=== PATIENT | male | born 1965 | race African-American/Black ===

== ENCOUNTER 2023-06-03 14:41 | Inpatient (IN) | payer OTHER ==
[2023-06-03 16:59] VITALS: BMI 21.8
[2023-06-03] MEDS ORDERED: DICYCLOMINE HCL 10 MG CAPSULE PO PRN (19:33)
[2023-06-03] MEDS ORDERED: NALOXONE HCL (KLOXXADO) 8 MG SPRAY NS PRN (19:33)
[2023-06-03] MEDS ORDERED: BENZOCAINE/MENTHOL (CHLORASEPTIC ) LOZENGE MM PRN (19:33)
[2023-06-03] MEDS ORDERED: POLYETHYLENE GLYCOL (HEALTHYLAX) 3350 17 GM PACKET PO PRN (19:33)
[2023-06-03] MEDS ORDERED: MAG HYDROX/AL HYDROX/SIMETH 30 ML UNIT-DOSE CUP PO PRN (19:33)
[2023-06-03] MEDS ORDERED: BENZONATATE 200 MG CAPSULE PO PRN (19:33)
[2023-06-03] MEDS ORDERED: LOPERAMIDE HCL 2 MG CAPSULE PO PRN (19:33)
[2023-06-03] MEDS ORDERED: IBUPROFEN 400 MG TABLET (FP) PO PRN (19:33)
[2023-06-03] MEDS ORDERED: guaiFENesin 600 MG TABLET.ER (FP) PO PRN (19:33)
[2023-06-03] MEDS ORDERED: NALOXONE HCL 0.4 MG/ML VIAL IM PRN (19:33)
[2023-06-03] MEDS ORDERED: ACETAMINOPHEN 325 MG TABLET (FP) PO PRN (19:33)
[2023-06-03] MEDS ORDERED: IBUPROFEN 600 MG TABLET (FP) PO PRN (19:33)
[2023-06-03] MEDS ORDERED: BISMUTH SUBSALICYLATE 524 MG/30 ML PO PRN (19:33)
[2023-06-03] MEDS ORDERED: MAGNESIUM HYDROX 2400MG/30ML ORAL SUSPENSION 30 ML CUP PO PRN (19:33)
[2023-06-03] MEDS ORDERED: ONDANSETRON *ODT* 4 MG TABLET SL PRN (19:33)
[2023-06-03] MEDS: GABAPENTIN 300 MG CAPSULE PO SCH (22:34)
[2023-06-03] MEDS: THIAMINE HCL 100 MG TABLET (FP) PO SCH (22:34)
[2023-06-03] MEDS: MELATONIN 5 MG TABLETS PO SCH (22:34)
[2023-06-04] MEDS: PRENATAL VITAMINS W/ FOLIC ACID TABLET (FP) PO SCH (10:50)
[2023-06-04 14:57] LABS: CHLORIDE 106 mmol/L (98-107); POTASSIUM 4.7 mmol/L (3.5-5.1); SODIUM 138 mmol/L (136-145)
[2023-06-04 14:59] LABS: CALCIUM 9.3 mg/dL (8.5-10.1)
[2023-06-04 15:00] LABS: ALBUMIN 3.7 g/dl (3.4-5.0); ANION GAP 1 mmol/L (4-13); BLOOD UREA NITROGEN 11.3 mg/dL (7-18); CO2 31 mmol/L (21-32); GLUCOSE,RANDOM 84 mg/dL (74-106)
[2023-06-04 15:01] LABS: HEMATOCRIT 41.4 % (35.4-49); HEMOGLOBIN 12.5 GM/dL (11.7-16.9); MCH 22.8 pg (25.7-33.7); MCHC 30.3 g/dl (32.0-35.9); MEAN CELL VOLUME 75.2 fl (80-96); MEAN PLT VOLUME 8.6 fl (7.5-11.1); PLATELET COUNT 358 10^3/uL (134-434); RDW 17.9 % (11.9-15.9); WHITE BLOOD COUNT 6.8 K/mm3 (4.0-10.0)
[2023-06-04 15:03] LABS: SGOT/AST 16 U/L (15-37); SGPT/ALT 26 U/L (13-61)
[2023-06-04 15:05] LABS: BILIRUBIN,TOTAL 0.3 mg/dL (0.2-1)
[2023-06-04 15:06] LABS: ALK PHOS 68 U/L (45-117)
[2023-06-04] MEDS: METHOCARBAMOL 500 MG TABLET PO PRN (22:46)
[2023-06-04] MEDS: hydrOXYzine PAMOATE 25 MG CAPSULE (FP) PO PRN (22:46)
[2023-06-05 06:36] VITALS: RESP 16
[2023-06-05 09:50] VITALS: BP 141/71; PULSE 89; TEMP 97.1
== END 2023-06-05 12:03 | disposition home or self-care (01) | DRG 774 ==
LOC: YASAS 14:41 → Y6N 19:21
PROVIDERS: ADMIT Allergy & Immunology; ATTEND Surgery
PROC: HZ2ZZZZ Detoxification Services for Substance Abuse Treatment (ICD-10-PCS; principal; 2023-06-03)
DX: F10.20 Alcohol dependence, uncomplicated (principal); F14.10 Cocaine abuse, uncomplicated; F12.20 Cannabis dependence, uncomplicated; F17.210 Nicotine dependence, cigarettes, uncomplicated; G25.81 Restless legs syndrome; I10 Essential (primary) hypertension; Z86.73 Personal history of transient ischemic attack (TIA), and cerebral infarction without residual deficits; Z89.021 Acquired absence of right finger(s)
CPT/HCPCS: 36415; 80053; 80305; 80307; 82962; 85027; 86780

== ENCOUNTER 2023-08-08 12:15 | Inpatient (IN) | payer OTHER ==
[2023-08-08 13:25] VITALS: BMI 20.9
[2023-08-08] MEDS ORDERED: LOPERAMIDE HCL 2 MG CAPSULE PO PRN (14:12)
[2023-08-08] MEDS ORDERED: MAG HYDROX/AL HYDROX/SIMETH 30 ML UNIT-DOSE CUP PO PRN (14:12)
[2023-08-08] MEDS ORDERED: POLYETHYLENE GLYCOL (HEALTHYLAX) 3350 17 GM PACKET PO PRN (14:12)
[2023-08-08] MEDS ORDERED: NALOXONE HCL (KLOXXADO) 8 MG SPRAY NS PRN (14:12)
[2023-08-08] MEDS ORDERED: guaiFENesin 600 MG TABLET.ER (FP) PO PRN (14:12)
[2023-08-08] MEDS ORDERED: BENZONATATE 200 MG CAPSULE PO PRN (14:12)
[2023-08-08] MEDS ORDERED: BENZOCAINE/MENTHOL (CHLORASEPTIC ) LOZENGE MM PRN (14:12)
[2023-08-08] MEDS ORDERED: MAGNESIUM HYDROX 2400MG/30ML ORAL SUSPENSION 30 ML CUP PO PRN (14:12)
[2023-08-08] MEDS ORDERED: BISMUTH SUBSALICYLATE 262 MG/15 ML BTL PO PRN (14:12)
[2023-08-08] MEDS ORDERED: ACETAMINOPHEN 325 MG TABLET (FP) PO PRN (14:12)
[2023-08-08] MEDS ORDERED: NALOXONE HCL 0.4 MG/ML VIAL IM PRN (14:12)
[2023-08-08] MEDS ORDERED: chlordiazePOXIDE HCL 25 MG CAPSULE PO PRN (14:12)
[2023-08-08] MEDS ORDERED: DICYCLOMINE HCL 10 MG CAPSULE PO PRN (14:12)
[2023-08-08] MEDS ORDERED: ONDANSETRON *ODT* 4 MG TABLET SL PRN (14:12)
[2023-08-08] MEDS: GABAPENTIN 400 MG CAPSULE PO SCH (17:29)
[2023-08-08] MEDS: chlordiazePOXIDE HCL 25 MG CAPSULE PO SCH (17:30)
[2023-08-08] MEDS: THIAMINE 100 MG TABLET PO SCH (22:22)
[2023-08-08] MEDS: MELATONIN 5 MG TABLETS PO SCH (22:27)
[2023-08-09] MEDS: metFORMIN HCL 500 MG TABLET (FP) PO SCH (06:34)
[2023-08-09] MEDS: PRENATAL VITAMINS W/ FOLIC ACID TABLET (FP) PO SCH (10:25)
[2023-08-09 11:52] LABS: CHLORIDE 107 mmol/L (98-107); POTASSIUM 4.4 mmol/L (3.5-5.1); SODIUM 140 mmol/L (136-145)
[2023-08-09 11:55] LABS: HEMATOCRIT 37.2 % (35.4-49); HEMOGLOBIN 12.1 GM/dL (11.7-16.9); MCH 23.7 pg (25.7-33.7); MCHC 32.4 g/dl (32.0-35.9); MEAN CELL VOLUME 73.1 fl (80-96); MEAN PLT VOLUME 8.5 fl (7.5-11.1); PLATELET COUNT 289 10^3/uL (134-434); RBC 5.09 M/mm3 (4.00-5.60); RDW 15.5 % (11.9-15.9); WHITE BLOOD COUNT 6.2 K/mm3 (4.0-10.0)
[2023-08-09 11:59] LABS: CALCIUM 8.8 mg/dL (8.5-10.1)
[2023-08-09 12:00] LABS: ALBUMIN 3.7 g/dl (3.4-5.0); ANION GAP 4 mmol/L (4-13); CO2 29 mmol/L (21-32); GLUCOSE,RANDOM 124 mg/dL (74-106)
[2023-08-09 12:03] LABS: SGOT/AST 35 U/L (15-37); SGPT/ALT 48 U/L (13-61)
[2023-08-09 12:04] LABS: BILIRUBIN,TOTAL 0.5 mg/dL (0.2-1); TOT PROT 7.2 g/dl (6.4-8.2)
[2023-08-09 12:06] LABS: ALK PHOS 72 U/L (45-117)
[2023-08-09] MEDS: LACTULOSE 20 GM/30 ML UDC (FOR ORAL USE ONLY) PO SCH (17:34)
[2023-08-10] MEDS: chlordiazePOXIDE HCL 25 MG CAPSULE PO SCH (05:56)
[2023-08-10] MEDS: BACITRACIN 0.9 GM PACKET TP SCH (12:20)
[2023-08-10] MEDS: IBUPROFEN 600 MG TABLET (FP) PO PRN (21:20)
[2023-08-10] MEDS: ACETAMINOPHEN 325 MG TABLET (FP) PO ONE (23:27)
[2023-08-11] MEDS ORDERED: chlordiazePOXIDE HCL 10 MG CAPSULE PO PRN
[2023-08-11] MEDS: IBUPROFEN 400 MG TABLET (FP) PO PRN (02:38)
[2023-08-11] MEDS: METHOCARBAMOL 500 MG TABLET PO PRN (02:40)
[2023-08-11] MEDS: chlordiazePOXIDE HCL 10 MG CAPSULE PO SCH (05:33)
[2023-08-11] MEDS: CHLORHEXIDINE GLUCONATE 0.12% 15ML CUP MM SCH (11:05)
[2023-08-11] MEDS: cloNIDine HCL 0.1 MG TABLET PO PRN (15:27)
[2023-08-11] MEDS: AMOX TR/POT CLAV 875MG/125MG TABLETS (FP) PO SCH (16:48)
[2023-08-11] MEDS: hydrOXYzine PAMOATE 25 MG CAPSULE (FP) PO PRN (19:31)
[2023-08-11] MEDS: amLODIPine BESYLATE 5 MG TABLET (FP) PO ONE (19:31)
[2023-08-12] MEDS: NAPROXEN 500 MG TABLET PO ONE (00:06)
[2023-08-12] MEDS: chlordiazePOXIDE HCL 10 MG CAPSULE PO SCH (06:02)
[2023-08-12 21:00] VITALS: RESP 17
[2023-08-13] MEDS ORDERED: chlordiazePOXIDE HCL 10 MG CAPSULE PO ONE (05:00)
[2023-08-13 06:18] VITALS: BP 146/95; PULSE 98; TEMP 98.4
[2023-08-13] MEDS ORDERED: GABAPENTIN 400 MG CAPSULE PO SCH (12:00)
== END 2023-08-13 11:45 | disposition other institution (70) | DRG 774 ==
LOC: YASAS 12:15 → Y6N 14:28
PROVIDERS: ADMIT Allergy & Immunology; ATTEND Surgery
PROC: HZ2ZZZZ Detoxification Services for Substance Abuse Treatment (ICD-10-PCS; principal; 2023-08-08)
DX: F10.230 Alcohol dependence with withdrawal, uncomplicated (principal); F14.20 Cocaine dependence, uncomplicated; F12.20 Cannabis dependence, uncomplicated; F17.210 Nicotine dependence, cigarettes, uncomplicated; F19.24 Other psychoactive substance dependence with psychoactive substance-induced mood disorder; F41.9 Anxiety disorder, unspecified; E72.20 Disorder of urea cycle metabolism, unspecified; I25.10 Atherosclerotic heart disease of native coronary artery without angina pectoris; I10 Essential (primary) hypertension; K04.7 Periapical abscess without sinus; K08.89 Other specified disorders of teeth and supporting structures; E11.9 Type 2 diabetes mellitus without complications; Z79.84 Long term (current) use of oral hypoglycemic drugs; M06.9 Rheumatoid arthritis, unspecified; Z86.73 Personal history of transient ischemic attack (TIA), and cerebral infarction without residual deficits; Z87.820 Personal history of traumatic brain injury; Z86.69 Personal history of other diseases of the nervous system and sense organs; Z59.01 Sheltered homelessness; Z56.0 Unemployment, unspecified
CPT/HCPCS: 36415; 80053; 80305; 80307; 82140; 82962; 85027; 86780; 93005; 93010

== ENCOUNTER 2023-08-11 11:21 | Emergency (ER) | payer OTHER ==
[2023-08-11 11:34] VITALS: BP 165/97; PULSE 95; RESP 18; TEMP 98; BMI 21.5
== END 2023-08-11 14:00 | disposition home or self-care (01) ==
LOC: JERFT 11:21
DX: K04.7 Periapical abscess without sinus (principal)
CPT/HCPCS: 99283-25

== ENCOUNTER 2023-08-21 13:31 | Inpatient (IN) | payer OTHER ==
[2023-08-21 13:49] VITALS: BMI 21.9
[2023-08-21] MEDS ORDERED: IBUPROFEN 600 MG TABLET (FP) PO PRN (17:35)
[2023-08-21] MEDS ORDERED: MAG HYDROX/AL HYDROX/SIMETH 30 ML UNIT-DOSE CUP PO PRN (17:35)
[2023-08-21] MEDS ORDERED: DICYCLOMINE HCL 10 MG CAPSULE PO PRN (17:35)
[2023-08-21] MEDS ORDERED: NALOXONE (NARCAN) HCL 4 MG/0.1 ML SPRAY NS PRN (17:35)
[2023-08-21] MEDS ORDERED: hydrOXYzine PAMOATE 25 MG CAPSULE (FP) PO PRN (17:35)
[2023-08-21] MEDS ORDERED: NALOXONE HCL 0.4 MG/ML VIAL IM PRN (17:35)
[2023-08-21] MEDS ORDERED: MAGNESIUM HYDROX 2400MG/30ML ORAL SUSPENSION 30 ML CUP PO PRN (17:35)
[2023-08-21] MEDS ORDERED: LOPERAMIDE HCL 2 MG CAPSULE PO PRN (17:35)
[2023-08-21] MEDS ORDERED: ONDANSETRON *ODT* 4 MG TABLET SL PRN (17:35)
[2023-08-21] MEDS ORDERED: BENZOCAINE/MENTHOL (CHLORASEPTIC ) LOZENGE MM PRN (17:35)
[2023-08-21] MEDS ORDERED: ACETAMINOPHEN 325 MG TABLET (FP) PO PRN (17:35)
[2023-08-21] MEDS ORDERED: chlordiazePOXIDE HCL 25 MG CAPSULE PO PRN (17:35)
[2023-08-21] MEDS ORDERED: POLYETHYLENE GLYCOL (HEALTHYLAX) 3350 17 GM PACKET PO PRN (17:35)
[2023-08-21] MEDS ORDERED: IBUPROFEN 400 MG TABLET (FP) PO PRN (17:35)
[2023-08-21] MEDS ORDERED: BENZONATATE 200 MG CAPSULE PO PRN (17:35)
[2023-08-21] MEDS ORDERED: METHOCARBAMOL 500 MG TABLET PO PRN (17:35)
[2023-08-21] MEDS ORDERED: guaiFENesin 600 MG TABLET.ER (FP) PO PRN (17:35)
[2023-08-21] MEDS: GABAPENTIN 100 MG CAPSULE PO SCH (22:39)
[2023-08-21] MEDS: chlordiazePOXIDE HCL 25 MG CAPSULE PO SCH (22:40)
[2023-08-21] MEDS: THIAMINE 100 MG TABLET PO SCH (22:40)
[2023-08-21] MEDS: MELATONIN 5 MG TABLETS PO SCH (22:41)
[2023-08-22] MEDS: metFORMIN HCL 500 MG TABLET (FP) PO SCH (07:25)
[2023-08-22] MEDS: PRENATAL VITAMINS W/ FOLIC ACID TABLET (FP) PO SCH (10:33)
[2023-08-22 11:51] LABS: CHLORIDE 111 mmol/L (98-107); POTASSIUM 3.8 mmol/L (3.5-5.1); SODIUM 144 mmol/L (136-145)
[2023-08-22 12:02] LABS: BLOOD UREA NITROGEN 16.5 mg/dL (7-18); CALCIUM 8.9 mg/dL (8.5-10.1)
[2023-08-22 12:03] LABS: ALBUMIN 3.1 g/dl (3.4-5.0); ANION GAP 6 mmol/L (4-13); CO2 26 mmol/L (21-32); GLUCOSE,RANDOM 138 mg/dL (74-106)
[2023-08-22 12:05] LABS: CREATININE 0.9 mg/dL (0.55-1.3); SGOT/AST 13 U/L (15-37)
[2023-08-22 12:06] LABS: ALK PHOS 66 U/L (45-117); BILIRUBIN,TOTAL 0.2 mg/dL (0.2-1); SGPT/ALT 23 U/L (13-61)
[2023-08-22 12:08] LABS: TOT PROT 6.1 g/dl (6.4-8.2)
[2023-08-22 12:14] LABS: HEMATOCRIT 35.5 % (35.4-49); MCH 22.9 pg (25.7-33.7); MCHC 31.1 g/dl (32.0-35.9); MEAN CELL VOLUME 73.5 fl (80-96); MEAN PLT VOLUME 7.9 fl (7.5-11.1); PLATELET COUNT 345 10^3/uL (134-434); RBC 4.83 M/mm3 (4.00-5.60); RDW 15.4 % (11.9-15.9); WHITE BLOOD COUNT 6.5 K/mm3 (4.0-10.0)
[2023-08-23] MEDS: chlordiazePOXIDE HCL 25 MG CAPSULE PO SCH (05:44)
[2023-08-23] MEDS: BISMUTH SUBSALICYLATE 524 MG/30 ML PO PRN (23:05)
[2023-08-24] MEDS ORDERED: chlordiazePOXIDE HCL 10 MG CAPSULE PO PRN
[2023-08-24] MEDS: chlordiazePOXIDE HCL 10 MG CAPSULE PO SCH (05:58)
[2023-08-24] MEDS ORDERED: TRIMETHOBENZAMIDE HCL 200MG/2ML INJ IM PRN (10:35)
[2023-08-24] MEDS: FAMOTIDINE 20 MG TABLET PO SCH (11:14)
[2023-08-24] MEDS: NICOTINE POLACRILEX 2 MG GUM BUC PRN (23:00)
[2023-08-25] MEDS: chlordiazePOXIDE HCL 10 MG CAPSULE PO SCH (05:50)
[2023-08-25 21:19] VITALS: TEMP 97.7
[2023-08-26] MEDS: chlordiazePOXIDE HCL 10 MG CAPSULE PO ONE (05:32)
[2023-08-26 06:02] VITALS: BP 117/76; PULSE 83; RESP 17
== END 2023-08-26 09:00 | disposition other institution (70) | DRG 774 ==
LOC: YASAS 13:31 → Y6N 17:54
PROVIDERS: ADMIT Allergy & Immunology; ATTEND Surgery
PROC: HZ2ZZZZ Detoxification Services for Substance Abuse Treatment (ICD-10-PCS; principal; 2023-08-21)
DX: F10.230 Alcohol dependence with withdrawal, uncomplicated (principal); F14.20 Cocaine dependence, uncomplicated; F12.20 Cannabis dependence, uncomplicated; F17.210 Nicotine dependence, cigarettes, uncomplicated; F41.9 Anxiety disorder, unspecified; G62.9 Polyneuropathy, unspecified; I25.10 Atherosclerotic heart disease of native coronary artery without angina pectoris; E11.9 Type 2 diabetes mellitus without complications; Z79.84 Long term (current) use of oral hypoglycemic drugs; M54.50 Low back pain, unspecified; G89.29 Other chronic pain; Z89.021 Acquired absence of right finger(s); Z86.73 Personal history of transient ischemic attack (TIA), and cerebral infarction without residual deficits
CPT/HCPCS: 36415; 80053; 80305; 80307; 82962; 85027; 86780; 93005; 93010

== ENCOUNTER 2023-09-06 11:52 | Inpatient (IN) | payer OTHER ==
[2023-09-06 12:24] VITALS: BMI 22.1
[2023-09-06] MEDS ORDERED: MAGNESIUM HYDROX 2400MG/30ML ORAL SUSPENSION 30 ML CUP PO PRN (13:44)
[2023-09-06] MEDS ORDERED: MAG HYDROX/AL HYDROX/SIMETH 30 ML UNIT-DOSE CUP PO PRN (13:44)
[2023-09-06] MEDS ORDERED: BENZOCAINE/MENTHOL (CHLORASEPTIC ) LOZENGE MM PRN (13:44)
[2023-09-06] MEDS ORDERED: LOPERAMIDE HCL 2 MG CAPSULE PO PRN (13:44)
[2023-09-06] MEDS ORDERED: POLYETHYLENE GLYCOL (HEALTHYLAX) 3350 17 GM PACKET PO PRN (13:44)
[2023-09-06] MEDS ORDERED: diazePAM 5 MG TABLET PO PRN (13:44)
[2023-09-06] MEDS ORDERED: NALOXONE (NARCAN) HCL 4 MG/0.1 ML SPRAY NS PRN (13:44)
[2023-09-06] MEDS ORDERED: DICYCLOMINE HCL 10 MG CAPSULE PO PRN (13:44)
[2023-09-06] MEDS ORDERED: guaiFENesin 600 MG TABLET.ER (FP) PO PRN (13:44)
[2023-09-06] MEDS ORDERED: IBUPROFEN 600 MG TABLET (FP) PO PRN (13:44)
[2023-09-06] MEDS ORDERED: BENZONATATE 200 MG CAPSULE PO PRN (13:44)
[2023-09-06] MEDS ORDERED: ACETAMINOPHEN 325 MG TABLET (FP) PO PRN (13:44)
[2023-09-06] MEDS ORDERED: ONDANSETRON *ODT* 4 MG TABLET SL PRN (13:44)
[2023-09-06] MEDS ORDERED: BISMUTH SUBSALICYLATE 524 MG/30 ML PO PRN (13:44)
[2023-09-06] MEDS ORDERED: NALOXONE HCL 0.4 MG/ML VIAL IM PRN (13:44)
[2023-09-06] MEDS ORDERED: IBUPROFEN 400 MG TABLET (FP) PO PRN (13:44)
[2023-09-06] MEDS ORDERED: PRENATAL VITAMINS W/ FOLIC ACID TABLET (FP) PO ONE (14:10)
[2023-09-06] MEDS: PRENATAL VITAMINS W/ FOLIC ACID TABLET (FP) PO SCH (14:13)
[2023-09-06] MEDS: NICOTINE 14 MG/24 HOURS TOPICAL PATCH TD SCH (14:14)
[2023-09-06] MEDS: GABAPENTIN 100 MG CAPSULE PO SCH (15:08)
[2023-09-06] MEDS: diazePAM 5 MG TABLET PO SCH (17:20)
[2023-09-06] MEDS: metFORMIN HCL 500 MG TABLET (FP) PO SCH (17:20)
[2023-09-06] MEDS: THIAMINE 100 MG TABLET PO SCH (22:44)
[2023-09-06] MEDS: MELATONIN 5 MG TABLETS PO SCH (22:44)
[2023-09-06] MEDS: AMOX TR/POT CLAV 875MG/125MG TABLETS (FP) PO SCH (22:47)
[2023-09-06] MEDS: levETIRAcetam 500 MG TABLET (FP) PO SCH (22:47)
[2023-09-06] MEDS: FAMOTIDINE 20 MG TABLET PO SCH (22:47)
[2023-09-07] MEDS: LISINOPRIL 10 MG TABLET PO SCH (10:28)
[2023-09-07 11:51] LABS: HEMATOCRIT 35.9 % (35.4-49); HEMOGLOBIN 11.3 GM/dL (11.7-16.9); MCHC 31.5 g/dl (32.0-35.9); MEAN CELL VOLUME 72.9 fl (80-96); MEAN PLT VOLUME 8.1 fl (7.5-11.1); PLATELET COUNT 311 10^3/uL (134-434); RBC 4.93 M/mm3 (4.00-5.60); WHITE BLOOD COUNT 5.5 K/mm3 (4.0-10.0)
[2023-09-07 11:53] LABS: CHLORIDE 110 mmol/L (98-107); POTASSIUM 4.6 mmol/L (3.5-5.1); SODIUM 142 mmol/L (136-145)
[2023-09-07 11:59] LABS: CALCIUM 8.9 mg/dL (8.5-10.1)
[2023-09-07 12:00] LABS: ANION GAP 3 mmol/L (4-13); BLOOD UREA NITROGEN 13.6 mg/dL (7-18); CO2 29 mmol/L (21-32); GLUCOSE,RANDOM 87 mg/dL (74-106)
[2023-09-07 12:01] LABS: CREATININE 0.7 mg/dL (0.55-1.3); SGOT/AST 10 U/L (15-37)
[2023-09-07 12:03] LABS: BILIRUBIN,TOTAL 0.1 mg/dL (0.2-1); SGPT/ALT 19 U/L (13-61); TOT PROT 6.1 g/dl (6.4-8.2)
[2023-09-07 12:04] LABS: ALK PHOS 58 U/L (45-117)
[2023-09-08] MEDS: diazePAM 5 MG TABLET PO SCH (05:30)
[2023-09-08] MEDS ORDERED: NICOTINE 14 MG/24 HOURS TOPICAL PATCH TD PRN (09:55)
[2023-09-08] MEDS: FAMOTIDINE 20 MG TABLET PO SCH (17:19)
[2023-09-08] MEDS: SUVOREXANT 10 MG TABLET PO PRN (22:09)
[2023-09-08] MEDS: BACITRACIN 0.9 GM PACKET TP SCH (22:10)
[2023-09-09] MEDS: diazePAM 5 MG TABLET PO SCH (05:24)
[2023-09-09] MEDS: hydrOXYzine PAMOATE 25 MG CAPSULE (FP) PO PRN (13:53)
[2023-09-09] MEDS: METHOCARBAMOL 500 MG TABLET PO PRN (13:53)
[2023-09-09] MEDS: NICOTINE POLACRILEX 4 MG LOZENGE BC PRN (22:36)
[2023-09-10] MEDS: diazePAM 5 MG TABLET PO ONE (06:04)
[2023-09-10 06:42] VITALS: BP 111/62; PULSE 87; RESP 16; TEMP 98.2
[2023-09-10] MEDS: NICOTINE POLACRILEX 4 MG GUM BUC PRN (10:01)
== END 2023-09-10 13:45 | disposition other institution (70) | DRG 774 ==
LOC: YASAS 11:52 → Y6N 13:52
PROVIDERS: ADMIT Allergy & Immunology; ATTEND Surgery
PROC: HZ2ZZZZ Detoxification Services for Substance Abuse Treatment (ICD-10-PCS; principal; 2023-09-06)
DX: F10.230 Alcohol dependence with withdrawal, uncomplicated (principal); F14.20 Cocaine dependence, uncomplicated; F12.20 Cannabis dependence, uncomplicated; F17.210 Nicotine dependence, cigarettes, uncomplicated; F41.9 Anxiety disorder, unspecified; G40.909 Epilepsy, unspecified, not intractable, without status epilepticus; I10 Essential (primary) hypertension; K21.9 Gastro-esophageal reflux disease without esophagitis; E11.9 Type 2 diabetes mellitus without complications; Z79.84 Long term (current) use of oral hypoglycemic drugs; Z62.810 Personal history of physical and sexual abuse in childhood; Z63.8 Other specified problems related to primary support group; Z86.73 Personal history of transient ischemic attack (TIA), and cerebral infarction without residual deficits; Z87.820 Personal history of traumatic brain injury
CPT/HCPCS: 36415; 80053; 80305; 80307; 82140; 82962; 85027; 86780; 93005; 93010

== ENCOUNTER 2024-03-01 10:23 | Inpatient (IN) | payer OTHER ==
[2024-03-01 10:57] VITALS: BMI 23.0
[2024-03-01] MEDS ORDERED: ACETAMINOPHEN 325 MG TABLET (FP) PO PRN (13:19)
[2024-03-01] MEDS ORDERED: NALOXONE (NARCAN) HCL 4 MG/0.1 ML SPRAY NS PRN (13:19)
[2024-03-01] MEDS ORDERED: IBUPROFEN 400 MG TABLET (FP) PO PRN (13:19)
[2024-03-01] MEDS ORDERED: BENZOCAINE/MENTHOL (CHLORASEPTIC ) LOZENGE MM PRN (13:19)
[2024-03-01] MEDS ORDERED: LOPERAMIDE HCL 2 MG CAPSULE PO PRN (13:19)
[2024-03-01] MEDS ORDERED: guaiFENesin 600 MG TABLET.ER (FP) PO PRN (13:19)
[2024-03-01] MEDS ORDERED: hydrOXYzine PAMOATE 25 MG CAPSULE (FP) PO PRN (13:19)
[2024-03-01] MEDS ORDERED: NICOTINE POLACRILEX 2 MG GUM BUC PRN (13:19)
[2024-03-01] MEDS ORDERED: MAG HYDROX/AL HYDROX/SIMETH 30 ML UNIT-DOSE CUP PO PRN (13:19)
[2024-03-01] MEDS ORDERED: POLYETHYLENE GLYCOL (HEALTHYLAX) 3350 17 GM PACKET PO PRN (13:19)
[2024-03-01] MEDS ORDERED: MAGNESIUM HYDROX 2400MG/30ML ORAL SUSPENSION 30 ML CUP PO PRN (13:19)
[2024-03-01] MEDS ORDERED: BENZONATATE 200 MG CAPSULE PO PRN (13:19)
[2024-03-01] MEDS: metFORMIN HCL 500 MG TABLET (FP) PO SCH (17:45)
[2024-03-01] MEDS: levETIRAcetam 500 MG TABLET (FP) PO SCH (22:11)
[2024-03-01] MEDS: SUVOREXANT 10 MG TABLET PO PRN (22:11)
[2024-03-01] MEDS: MELATONIN 5 MG TABLETS PO SCH (22:11)
[2024-03-01] MEDS: THIAMINE 100 MG TABLET PO SCH (22:11)
[2024-03-02] MEDS: IBUPROFEN 600 MG TABLET (FP) PO PRN (05:59)
[2024-03-02] MEDS: PRENATAL VITAMINS W/ FOLIC ACID TABLET (FP) PO SCH (10:01)
[2024-03-02] MEDS: LISINOPRIL 10 MG TABLET PO SCH (10:01)
[2024-03-02] MEDS: NICOTINE 14 MG/24 HOURS TOPICAL PATCH TD SCH (10:01)
[2024-03-02 13:43] LABS: HEMATOCRIT 36.5 % (35.4-49); HEMOGLOBIN 11.4 GM/dL (11.7-16.9); MCH 23.1 pg (25.7-33.7); MCHC 31.3 g/dl (32.0-35.9); MEAN CELL VOLUME 73.6 fl (80-96); MEAN PLT VOLUME 8.1 fl (7.5-11.1); PLATELET COUNT 382 10^3/uL (134-434); RBC 4.96 M/mm3 (4.00-5.60); RDW 18.1 % (11.9-15.9); WHITE BLOOD COUNT 4.6 K/mm3 (4.0-10.0)
[2024-03-02 13:48] LABS: CHLORIDE 108 mmol/L (98-107); POTASSIUM 4.5 mmol/L (3.5-5.1); SODIUM 141 mmol/L (136-145)
[2024-03-02 13:54] LABS: GLUCOSE,RANDOM 84 mg/dL (74-106)
[2024-03-02 13:57] LABS: ALBUMIN 3.5 g/dl (3.4-5.0); ANION GAP 6 mmol/L (4-13); BLOOD UREA NITROGEN 12.5 mg/dL (7-18); CALCIUM 9.4 mg/dL (8.5-10.1); CO2 27 mmol/L (21-32)
[2024-03-02 14:00] LABS: CREATININE 1.1 mg/dL (0.55-1.3); SGOT/AST 19 U/L (15-37)
[2024-03-02 14:01] LABS: BILIRUBIN,TOTAL 0.3 mg/dL (0.2-1); SGPT/ALT 24 U/L (13-61)
[2024-03-02 14:02] LABS: TOT PROT 6.9 g/dl (6.4-8.2)
[2024-03-02 14:06] LABS: ALK PHOS 63 U/L (45-117)
[2024-03-05 16:41] LABS: PH,URINE 6.5 (5.0-8.0); URINE APPEARANCE CLEAR; URINE BILIRUBIN NEGATIVE (NEGATIVE); URINE COLOR YELLOW; URINE GLUCOSE (UA) NEGATIVE (NEGATIVE); URINE KETONE NEGATIVE (NEGATIVE); URINE LEUK ESTERASE NEGATIVE (NEGATIVE); URINE NITRITE NEGATIVE (NEGATIVE); URINE PROTEIN NEGATIVE (NEGATIVE); URINE UROBILINOGEN 0.2 mg/dL (0.2-1.0)
[2024-03-06 16:28] VITALS: BP 123/75; PULSE 85; RESP 18; TEMP 96.6
[2024-03-06] MEDS: NALOXONE (NYS OPIOID OVERDOSE PROGRAM) 4 MG/0.1 ML SPRAY NS SCH ×2 (18:50→18:51)
== END 2024-03-06 16:52 | disposition home or self-care (01) | DRG 772 ==
LOC: YASAS 10:23 → Y3NR 14:20 → Y3W 03-03 12:37
PROVIDERS: ADMIT Psychiatry & Neurology Pain Medicine; ATTEND Psychiatry & Neurology Pain Medicine
PROC: HZ42ZZZ Group Counseling for Substance Abuse Treatment, Cognitive-Behavioral (ICD-10-PCS; principal; 2024-03-01)
DX: F10.20 Alcohol dependence, uncomplicated (principal); F14.20 Cocaine dependence, uncomplicated; F17.210 Nicotine dependence, cigarettes, uncomplicated; F41.9 Anxiety disorder, unspecified; G40.909 Epilepsy, unspecified, not intractable, without status epilepticus; E78.2 Mixed hyperlipidemia; I25.10 Atherosclerotic heart disease of native coronary artery without angina pectoris; I10 Essential (primary) hypertension; I25.2 Old myocardial infarction; J45.20 Mild intermittent asthma, uncomplicated; E11.9 Type 2 diabetes mellitus without complications; Z79.84 Long term (current) use of oral hypoglycemic drugs; M54.50 Low back pain, unspecified; G89.29 Other chronic pain; Z86.73 Personal history of transient ischemic attack (TIA), and cerebral infarction without residual deficits; Z87.820 Personal history of traumatic brain injury
CPT/HCPCS: 36415; 80053; 80305; 80307; 81003; 82962; 85027; 86780; 87811; 93005; 93010